=== PATIENT | female | born 1980 | race Caucasian/White ===

== ENCOUNTER 2016-09-06 15:15 | Emergency (ER) | payer MEDICAID ==
[~2016-09-06] VITALS: Ht 167.6 cm; Wt 57.0 kg
[2016-09-06 15:16] VITALS: BP 140/85; PULSE 112; RESP 15; TEMP 97.9; O2SAT 98
[2016-09-06] MEDS ORDERED: META1TAB19 PO (15:44)
[2016-09-06] MEDS ORDERED: HYDR-2376 PO (15:44)
[2016-09-06] MEDS ORDERED: ETOD400T PO (15:44)
[2016-09-06] MEDS ORDERED: ALPR1TAB3 PO (15:44)
[2016-09-06] MEDS ORDERED: KEPP750T PO ×2 (15:44→17:35)
[2016-09-06] MEDS ORDERED: levETIRAcetam 1000 MG INJ 100 ML IV ONE (16:00)
[2016-09-06] MEDS ORDERED: ALPRAZolam 1 MG TAB PO ONE (16:00)
--- NOTE | 2016-09-06 16:25 | PD ---
HPI Chief Complaint: Seizure Time Seen by Provider: 15:32 Travel History International Travel<30 days: No Contact w/Intl Traveler<30days: No Traveled to known affect area: No History of Present Illness HPI 35-year-old female came to the emergency room with history of seizure this morning. Patient has history of seizures and is supposed to be on Keppra and alprazolam. However she just recently moved and cannot get these prescriptions refilled. Her last dose of Xanax was 5 days ago and her last dose of Keppra was 2-3 days ago. Patient usually gets seizures once every 1-2 weeks. She is here to get her prescription refilled today. She is trying to get a primary care for herself who can continue with these prescriptions. Currently she is awake, alert, answering questions appropriately. She has tachycardia. PFSH Past Medical History Narrative Medical List of her past medical, social and family history was reviewed from the nursing note. Anxiety: Yes Diminished Hearing: No Musculoskeletal: Yes (CHRONIC BACK PAIN) Seizures: Yes (STARTED IN 2014) Tetanus Vaccination: Unknown ?: Not LMP: 09/03/16 : 3 Para: 3 Miscarriage: 0 : 0 Tubal Ligation: Yes Past Surgical History Section: Yes (X1) Social History Alcohol Use: No Tobacco Use: No Substance Use: No Allergies-Medications (Allergen,Severity, Reaction): Coded Allergies: Trazodone (Verified Allergy, Severe, Seizures, 09/06/16) Comments List of allergies reviewed from the nursing note. Reported Meds & Prescriptions Reported Meds & Active Scripts Active Keppra (Levetiracetam) 750 Mg Tab 750 Mg PO BID Xanax (Alprazolam) 0.5 Mg Tab 0.5 Mg PO Q6H PRN Reported Metaxalone 800 Mg Tab 800 Mg PO TID Hydrocodone-Acetaminophen 7.5-300 Mg Tab 1 Tab PO Q4H PRN Etodolac 400 Mg Tab 400 Mg PO BID Take with food. Alprazolam 1 Mg Tab 1 Mg PO Q6H PRN Keppra (Levetiracetam) 750 Mg Tab 750 Mg PO BID Narrative Medication List of her home medications reviewed from the nursing note. Review of Systems Except as stated in HPI: all other systems reviewed are Neg Physical Exam Narrative GENERAL: Awake, alert, anxious, no obvious distress SKIN: Warm and dry. HEAD: Atraumatic. Normocephalic. EYES: Pupils equal and round. No scleral icterus. No injection or drainage. ENT: No nasal bleeding or discharge. Mucous membranes pink and moist. NECK: Trachea midline. No JVD. CARDIOVASCULAR: Regular rate and rhythm. No murmur appreciated. RESPIRATORY: No accessory muscle use. Clear to auscultation. Breath sounds equal bilaterally. GASTROINTESTINAL: Abdomen soft, non-tender, nondistended. Hepatic and splenic margins not palpable. MUSCULOSKELETAL: No obvious deformities. No clubbing. No cyanosis. No edema. NEUROLOGICAL: Awake and alert. No obvious cranial nerve deficits. Motor grossly within normal limits. Normal speech. PSYCHIATRIC: Appropriate mood and affect; insight and judgment normal. Data Data Last Documented VS Vital Signs Date Time Temp Pulse Resp B/P Pulse Ox O2 Delivery O2 Flow Rate FiO2 09/06/16 18:16 74 20 135/82 98 Room Air 09/06/16 15:16 97.9 Orders Complete Blood Count With Diff (09/06/16 15:43) Basic Metabolic Panel (Bmp) (09/06/16 15:43) Magnesium (Mg) (09/06/16 15:43) Levetiracetam 1000 Mg Inj (Keppra 1000 M (09/06/16 16:00) Alprazolam (Xanax) (09/06/16 16:00) Mandatory Outpatient Referral (09/06/16 17:36) Labs Laboratory Tests Test 09/06/16 16:00 White Blood Count 10.7 TH/MM3 Red Blood Count 4.59 MIL/MM3 Hemoglobin 14.1 GM/DL Hematocrit 40.7 % Mean Corpuscular Volume 88.7 FL Mean Corpuscular Hemoglobin 30.7 PG Mean Corpuscular Hemoglobin 34.6 % Concent Red Cell Distribution Width 13.1 % Platelet Count 206 TH/MM3 Mean Platelet Volume 8.8 FL Neutrophils (%) (Auto) 70.5 % Lymphocytes (%) (Auto) 25.1 % Monocytes (%) (Auto) 2.5 % Eosinophils (%) (Auto) 1.4 % Basophils (%) (Auto) 0.5 % Neutrophils # (Auto) 7.5 TH/MM3 Lymphocytes # (Auto) 2.7 TH/MM3 Monocytes # (Auto) 0.3 TH/MM3 Eosinophils # (Auto) 0.1 TH/MM3 Basophils # (Auto) 0.1 TH/MM3 CBC Comment DIFF FINAL Differential Comment Sodium Level 139 MEQ/L Potassium Level 3.7 MEQ/L Chloride Level 106 MEQ/L Carbon Dioxide Level 27.5 MEQ/L Anion Gap 6 MEQ/L Blood Urea Nitrogen 10 MG/DL Creatinine 0.72 MG/DL Estimat Glomerular Filtration 92 ML/MIN Rate Random Glucose 89 MG/DL Calcium Level 8.9 MG/DL Magnesium Level 2.2 MG/DL MDM Medical Decision Making Medical Screen Exam Complete: Yes Emergency Medical Condition: Yes Medical Record Reviewed: Yes Differential Diagnosis Withdrawal seizures, prescription refill Narrative Course 4:25 PM I ordered IV 1 g of Keppra and patient is getting by mouth 1 mg of Xanax. Awaiting for the blood test results. Procedures EKG Prior to Arrival: No Diagnosis Primary Impression: Drug withdrawal seizure Qualified Code: F19.230 - Drug withdrawal seizure, uncomplicated Additional Impressions: Seizure disorder Prescription refill Referrals: Ryan Talamantes PhD 2 days Additional Instructions: Please follow-up with the neurologist was name and number been provided to you. Try to find a primary care for prescription refills. He should not drive until you have been cleared by a neurologist. Med/Other Pt SpecificInfo: Prescription(s) given Scripts Levetiracetam (Keppra)750 Mg Air695 Mg PO BID #10 TAB Ref 0 Prov:Kareen Hines MD 09/06/16 Alprazolam (Xanax)0.5 Mg Tab0.5 Mg PO Q6H PRN (ANXIETY) #10 TAB Ref 0 Prov:Kareen Hines MD 09/06/16 Disposition: 01 DISCHARGE HOME Condition: Stable Kareen Hines MD Sep 06, 2016 16:25
[2016-09-06 16:41] LABS: AUTOMATED NEUTROPHIL # 7.5 TH/MM3 (1.8-7.7); BASOPHIL # 0.1 TH/MM3 (0-0.2); BASOPHIL % 0.5 % (0.0-2.0); EOSINOPHIL # 0.1 TH/MM3 (0-0.4); EOSINOPHIL % 1.4 % (0.0-4.0); HEMATOCRIT 40.7 % (35.0-46.0); HEMO FLAGS DIFF FINAL; LYMPH % 25.1 % (9.0-44.0); LYMPHOCYTE # 2.7 TH/MM3 (1.0-4.8); MEAN CELL VOLUME 88.7 FL (80.0-100.0); MEAN CORPUSCULAR HEMOGLOBIN 30.7 PG (27.0-34.0); MEAN CORPUSCULAR HGB CONC 34.6 % (32.0-36.0); MONO % 2.5 % (0.0-8.0); NEUT % 70.5 % (16.0-70.0); PLATELET COUNT 206 TH/MM3 (150-450); RED BLOOD COUNT 4.59 MIL/MM3 (4.00-5.30); RED CELL DISTRIBUTION WIDTH 13.1 % (11.6-17.2); WHITE BLOOD COUNT 10.7 TH/MM3 (4.0-11.0)
[2016-09-06 17:10] LABS: BICARBONATE 27.5 MEQ/L (21.0-32.0); MAGNESIUM 2.2 MG/DL (1.5-2.5); POTASSIUM 3.7 MEQ/L (3.5-5.1)
[2016-09-06] MEDS ORDERED: ALPR.5 PO (17:35)
[2016-09-06 18:16] VITALS: BP 135/82; PULSE 74; RESP 20; O2SAT 98
== END 2016-09-06 19:15 | disposition home or self-care (01) ==
LOC: NEPE 15:15
DX: F19.230 Other psychoactive substance dependence with withdrawal, uncomplicated (principal); R00.0 Tachycardia, unspecified; G40.909 Epilepsy, unspecified, not intractable, without status epilepticus; Z76.0 Encounter for issue of repeat prescription
CPT/HCPCS: 80048; 83735; 85025; 96365; 99284; J1953

== ENCOUNTER 2017-08-27 10:43 | Emergency (ER) | payer MEDICAID ==
[~2017-08-27] VITALS: Ht 167.6 cm; Wt 56.4 kg
[~2017-08-27 10:43] MED LIST: ALPR.5 PO; ALPR1TAB3 PO; ETOD400T PO; HYDR-2376 PO; KEPP750T PO; META1TAB19 PO
[2017-08-27 10:46] VITALS: BP 141/74; PULSE 97; RESP 14; TEMP 98.4; O2SAT 98
[2017-08-27] MEDS ORDERED: SODIUM CHLOR 0.9% 1000 ML INJ 1,000 ML IV ONE (11:22)
[2017-08-27] MEDS ORDERED: ONDANSETRON HCL 4 MG/2 ML VIAL IV PUSH ONE (11:30)
[2017-08-27] MEDS ORDERED: SODIUM CHLORIDE 0.9% FLUSH 10 ML FLUSH IVF PRN (11:30)
[2017-08-27] MEDS ORDERED: MORPHINE SULFATE 2 MG/ML INJ IV PUSH ONE (11:30)
--- NOTE | 2017-08-27 11:37 | PD ---
HPI Chief Complaint: Seizure Time Seen by Provider: 11:16 Travel History International Travel<30 days: No Contact w/Intl Traveler<30days: No Traveled to known affect area: No History of Present Illness HPI Patient comes to the emergency department complaining of seizure that occurred last night while she was asleep in bed. Patient reports she takes Keppra 750 mg twice daily for her seizures and is compliant with this. Patient states she still has approximately 3-4 seizures per month. Patient states that she typically gets her medication from whatever hospital she goes to as she does not have a neurologist or primary care doctor currently. Patient states history has not seen a neurologist in a long time. Patient complaining of pain in her right leg from previous skin graft. Patient states that she typically has pain there but is worse since the seizure last night. Patient has pain as a stabbing burning pain without radiation. Patient denies any known trauma. Denies anything making it better or worse. PFSH Past Medical History Anxiety: Yes Diminished Hearing: No Musculoskeletal: Yes (CHRONIC BACK PAIN) Seizures: Yes (STARTED IN 2014) Influenza Vaccination: No ?: Not LMP: LAST MONTH : 3 Para: 3 Miscarriage: 0 : 0 Tubal Ligation: Yes Past Surgical History Section: Yes (X1) Other Surgery: Yes (SKIN GRAFT) Social History Alcohol Use: No Tobacco Use: Yes Substance Use: Yes (OCC MARIJUANA) Allergies-Medications (Allergen,Severity, Reaction): Coded Allergies: trazodone (Unverified Allergy, Severe, Seizures, 08/27/17) tramadol (Verified Allergy, Unknown, 08/27/17) Reported Meds & Prescriptions Reported Meds & Active Scripts Active Keppra (Levetiracetam) 750 Mg Tab 750 Mg PO BID 30 Days Xanax (Alprazolam) 0.5 Mg Tab 0.5 Mg PO Q6H PRN Reported Metaxalone 800 Mg Tab 800 Mg PO TID Hydrocodone-Acetaminophen 7.5-300 Mg Tab 1 Tab PO Q4H PRN Etodolac 400 Mg Tab 400 Mg PO BID Take with food. Alprazolam 1 Mg Tab 1 Mg PO Q6H PRN Review of Systems Except as stated in HPI: all other systems reviewed are Neg Physical Exam Narrative GENERAL: Well-developed, well nourished, in no acute distress, and non-ill appearing. SKIN: Focused skin assessment warm and dry. Well-healed skin graft noted over right lateral thigh. HEAD: Atraumatic. Normocephalic. EYES: Pupils equal and round. EOMI. No scleral icterus. No injection or drainage. ENT: No nasal bleeding or discharge. Mucous membranes pink and moist. NECK: Trachea midline. Supple. No nuclear rigidity. CARDIOVASCULAR: Regular rate and rhythm. No murmur appreciated. RESPIRATORY: No accessory muscle use. No respiratory distress. Clear to auscultation. Breath sounds equal bilaterally. MUSCULOSKELETAL: No obvious deformities. No clubbing. No cyanosis. No edema. Full range of motion. NEUROLOGICAL: Awake and alert. No obvious cranial nerve deficits. Motor grossly within normal limits. Normal speech. PSYCHIATRIC: Appropriate mood and affect; insight and judgment normal. Data Data Last Documented VS Vital Signs Date Time Temp Pulse Resp B/P (MAP) Pulse Ox O2 Delivery O2 Flow Rate FiO2 08/27/17 15:32 75 17 103/54 (70) 98 08/27/17 13:49 Room Air 08/27/17 10:46 98.4 Orders Orders Complete Blood Count With Diff (08/27/17 11:22) Basic Metabolic Panel (Bmp) (08/27/17 11:22) Alcohol (Ethanol) (08/27/17 11:22) Drug Screen, Random Urine (08/27/17 11:22) Blood Glucose (08/27/17 11:22) Ecg Monitoring (08/27/17 11:22) Iv Access Insert/Monitor (08/27/17 11:22) Oximetry (08/27/17 11:22) Sodium Chlor 0.9% 1000 Ml Inj (Ns 1000 M (08/27/17 11:22) Sodium Chloride 0.9% Flush (Ns Flush) (08/27/17 11:30) Urinalysis - C+S If Indicated (08/27/17 11:22) Ed Urine Pregnancytest Poc (08/27/17 11:22) Ondansetron Inj (Zofran Inj) (08/27/17 11:30) Morphine Inj (Morphine Inj) (08/27/17 11:30) Calcium Carbonate (Oscal) (08/27/17 14:30) Ed Discharge Order (08/27/17 14:23) Labs Laboratory Tests Test 08/27/17 11:55 08/27/17 13:40 White Blood Count 9.2 TH/MM3 Red Blood Count 4.73 MIL/MM3 Hemoglobin 14.4 GM/DL Hematocrit 41.6 % Mean Corpuscular Volume 88.0 FL Mean Corpuscular Hemoglobin 30.5 PG Mean Corpuscular Hemoglobin Concent 34.7 % Red Cell Distribution Width 14.4 % Platelet Count 179 TH/MM3 Mean Platelet Volume 9.0 FL Neutrophils (%) (Auto) 66.0 % Lymphocytes (%) (Auto) 28.5 % Monocytes (%) (Auto) 3.4 % Eosinophils (%) (Auto) 1.5 % Basophils (%) (Auto) 0.6 % Neutrophils # (Auto) 6.1 TH/MM3 Lymphocytes # (Auto) 2.6 TH/MM3 Monocytes # (Auto) 0.3 TH/MM3 Eosinophils # (Auto) 0.1 TH/MM3 Basophils # (Auto) 0.1 TH/MM3 CBC Comment DIFF FINAL Differential Comment Urine Color YELLOW Urine Turbidity CLEAR Urine pH 6.0 Urine Specific [place] 1.014 Urine Protein NEG mg/dL Urine Glucose (UA) NEG mg/dL Urine Ketones TRACE mg/dL Urine Occult Blood NEG Urine Nitrite NEG Urine Bilirubin NEG Urine Urobilinogen LESS THAN 2.0 MG/DL Urine Leukocyte Esterase NEG Urine WBC LESS THAN 1 /hpf Urine Squamous Epithelial Cells 3 /hpf Urine Bacteria RARE /hpf Urine Mucus FEW /lpf Microscopic Urinalysis Comment CULT NOT INDICATED Urine Opiates Screen NEG Urine Barbiturates Screen NEG Urine Amphetamines Screen NEG Urine Benzodiazepines Screen NEG Urine Cocaine Screen NEG Urine Cannabinoids Screen POS Blood Urea Nitrogen 6 MG/DL Creatinine 0.68 MG/DL Random Glucose 80 MG/DL Calcium Level 8.1 MG/DL Sodium Level 141 MEQ/L Potassium Level 4.6 MEQ/L Chloride Level 111 MEQ/L Carbon Dioxide Level 25.6 MEQ/L Anion Gap 4 MEQ/L Estimat Glomerular Filtration Rate 98 ML/MIN Ethyl Alcohol Level LESS THAN 3 MG/DL [facility] Medical Decision Making Medical Screen Exam Complete: Yes Emergency Medical Condition: Yes Differential Diagnosis Metabolic disturbance, UTI, withdrawal seizure, seizure disorder, medication refill, dehydration, medical noncompliance Narrative Course The patient presented with seizure. The patient has a known seizure disorder. The patient looks great and has returned to baseline. The patient admits to taking seizure medications as prescribed, but not following up outside the hospital. There is no evidence clinically to suggest meningitis, infection or metabolic etiology. The patient appears well hydrated and nontoxic. Clinical suspicion was discussed with patient. Patient was instructed that they must take seizure medication as prescribed and not miss or skip doses and follow-up with her neurologist for adjustment of medications or changes of medication. Patient was instructed she could return as needed or if recurred prior to follow up with neurology. Patient agreed with plan and instructions. The patient was also informed that they may not drive or operated heavy machinery due to the fact that they may have a seizure and cause injury or to themselves or others. They may not drive or operate heavy machinery until cleared by a neurologist. Patient in no obvious distress upon re-evaluation. All pertinent laboratory result(s) discussed with patient. Patient was asked if they wanted to speak to my attending, which the patient did not wish to do at this time. Discussed patient with Dr. Kang prior to discharge, who is in agreement with plan of care and disposition. Any questions/concerns in reference to patient diagnosis/ condition discussed and clarified prior to patient's discharge. Reinforced sheer importance of close follow up with patient's primary physician or primary care clinic and/or neurologist. Instructed patient to return to ED immediately, if symptoms return/worsen. Patient showed understanding of above instructions. Further instructions and recommendations were detailed in discharge paperwork. Patient ambulated without difficulty out of ED at discharge. Diagnosis Primary Impression: Seizure disorder Additional Impressions: Prescription refill Hypocalcemia Referrals: Ryan Talamantes MD PhD [facility] Patient Instructions: Epilepsy (DC), General Instructions, Hypocalcemia (ED), Medication Refill, ED Additional Instructions: Follow-up with your primary care physician and neurologist as soon as possible for reevaluation and adjustment of medications. Take all medication as prescribed. Return to the emergency department if symptoms get worse. Med/Other Pt SpecificInfo: Prescription(s) given Scripts Levetiracetam (Keppra) 750 Mg Tab 750 MG PO BID for Control Seizures for 30 Days, #60 TAB 0 Refills Prov: Chang Kang MD 08/27/17 Disposition: 01 DISCHARGE HOME Condition: Stable Tawanda Cazares Aug 27, 2017 11:37
[2017-08-27 11:58] VITALS: BP 151/77; PULSE 82; RESP 15; O2SAT 99
[2017-08-27 12:39] LABS: AUTOMATED NEUTROPHIL # 6.1 TH/MM3 (1.8-7.7); BASOPHIL # 0.1 TH/MM3 (0-0.2); BASOPHIL % 0.6 % (0.0-2.0); EOSINOPHIL # 0.1 TH/MM3 (0-0.4); EOSINOPHIL % 1.5 % (0.0-4.0); HEMATOCRIT 41.6 % (35.0-46.0); HEMOGLOBIN 14.4 GM/DL (11.6-15.3); LYMPH % 28.5 % (9.0-44.0); LYMPHOCYTE # 2.6 TH/MM3 (1.0-4.8); MEAN CORPUSCULAR HEMOGLOBIN 30.5 PG (27.0-34.0); MEAN CORPUSCULAR HGB CONC 34.7 % (32.0-36.0); MONO % 3.4 % (0.0-8.0); MONOCYTE # 0.3 TH/MM3 (0-0.9); PLATELET COUNT 179 TH/MM3 (150-450); RED BLOOD COUNT 4.73 MIL/MM3 (4.00-5.30); RED CELL DISTRIBUTION WIDTH 14.4 % (11.6-17.2); WHITE BLOOD COUNT 9.2 TH/MM3 (4.0-11.0)
[2017-08-27 13:04] LABS: BACTERIA, URINE RARE /hpf; BILIRUBIN, URINE NEG (NEG); BLOOD, URINE NEG (NEG); GLUCOSE,URINE NEG (NEG); KETONE, URINE TRACE mg/dL (NEG); MUCUS URINE FEW /lpf (OCC); NITRITE,URINE NEG (NEG); SQUAMOUS EPITHELIAL CELL URINE 3 /hpf (0-5); URINE COLOR YELLOW (YELLW/STRAW); URINE LEUKOCYTE ESTERASE NEG (NEG)
[2017-08-27 13:49] VITALS: BP 106/58; PULSE 71; RESP 16; O2SAT 98
[2017-08-27 14:14] LABS: BICARBONATE 25.6 MEQ/L (21.0-32.0); BLOOD UREA NITROGEN 6 MG/DL (7-18); CALCIUM 8.1 MG/DL (8.5-10.1); CHLORIDE 111 MEQ/L (98-107); CREATININE 0.68 MG/DL (0.50-1.00); GLOMERULAR FILTRATION RATE 98 ML/MIN (>89); GLUCOSE,RANDOM 80 MG/DL (74-106); SODIUM (NA) 141 MEQ/L (136-145)
[2017-08-27] MEDS ORDERED: KEPP750T PO (14:28)
[2017-08-27] MEDS ORDERED: CALCIUM CARBONATE 1.25 GM (CA 500 MG) TAB PO ONE (14:30)
[2017-08-27 15:32] VITALS: BP 103/54
== END 2017-08-27 15:45 | disposition home or self-care (01) ==
LOC: NEPC 10:43
DX: G40.909 Epilepsy, unspecified, not intractable, without status epilepticus (principal); E83.51 Hypocalcemia; Z72.0 Tobacco use
CPT/HCPCS: 80048; 80307; 81001; 84703; 85025; 96361; 96374; 96375; 99284; J2270; J2405; J7030

== ENCOUNTER 2017-09-30 11:58 | Emergency (ER) | payer MEDICAID ==
[~2017-09-30] VITALS: Ht 167.6 cm; Wt 56.0 kg
[2017-09-30 12:19] VITALS: BP 130/69; PULSE 72; RESP 16; TEMP 98.6; O2SAT 98
[2017-09-30] MEDS ORDERED: CLIN300C5 PO (12:37)
--- NOTE | 2017-09-30 12:42 | PD ---
HPI Chief Complaint: Oral / Dental Pain or Problem Time Seen by Provider: 12:22 Travel History International Travel<30 days: No Contact w/Intl Traveler<30days: No Traveled to known affect area: No History of Present Illness HPI 37-year-old female presents to the emergency room for evaluation of right upper dental pain for the past 2 days. States she woke up this morning and the right side of her face was swollen. Pain is constant, worse when she opens her mouth or bites down. She has not taken anything [id number] for her symptoms because she does not like to take anything besides what is prescribed to her. She applied a cool towel to her face last night. No objective fevers. Only history of seizures. PFSH Past Medical History Anxiety: Yes Diminished Hearing: No Musculoskeletal: Yes (CHRONIC BACK PAIN) Seizures: Yes (STARTED IN 2014) : 3 Para: 3 Miscarriage: 0 : 0 Tubal Ligation: Yes Past Surgical History Section: Yes (X1) Other Surgery: Yes (SKIN GRAFT) Social History Alcohol Use: No Tobacco Use: Yes Substance Use: Yes (OCC MARIJUANA) Allergies-Medications (Allergen,Severity, Reaction): Coded Allergies: trazodone (Unverified Allergy, Severe, Seizures, 08/27/17) tramadol (Verified Allergy, Unknown, 08/27/17) Reported Meds & Prescriptions Reported Meds & Active Scripts Active Keppra (Levetiracetam) 750 Mg Tab 750 Mg PO BID 30 Days Xanax (Alprazolam) 0.5 Mg Tab 0.5 Mg PO Q6H PRN Reported Metaxalone 800 Mg Tab 800 Mg PO TID Hydrocodone-Acetaminophen 7.5-300 Mg Tab 1 Tab PO Q4H PRN Etodolac 400 Mg Tab 400 Mg PO BID Take with food. Alprazolam 1 Mg Tab 1 Mg PO Q6H PRN Review of Systems Except as stated in HPI: all other systems reviewed are Neg Physical Exam Narrative GENERAL: Well-nourished, well-developed female no acute distress. Afebrile. Ambulatory. SKIN: Focused skin assessment warm/dry. HEAD: Normocephalic. Right side of the face is mildly edematous. No induration. EYES: No scleral icterus. No injection or drainage. DENTAL: No loose or chipped teeth. No malocclusion. Significant decay throughout. There is a small developing abscess above tooth #4. No significant edema. No drainage. NECK: Supple, trachea midline. No JVD or lymphadenopathy. CARDIOVASCULAR: Regular rate and rhythm without murmurs, gallops, or rubs. RESPIRATORY: Breath sounds equal bilaterally. No accessory muscle use. Data Data Last Documented VS Vital Signs Date Time Temp Pulse Resp B/P (MAP) Pulse Ox O2 Delivery O2 Flow Rate FiO2 09/30/17 12:19 98.6 72 16 130/69 (89) 98 Orders Orders Ketorolac Inj (Toradol Inj) (09/30/17 12:45) Clindamycin Inj (Cleocin Inj) (09/30/17 12:45) [facility] Medical Decision Making Medical Screen Exam Complete: Yes Emergency Medical Condition: Yes Medical Record Reviewed: Yes Differential Diagnosis Dental abscess, dentalgia, dental decay Narrative Course 37-year-old female presents to the emergency room for evaluation of right-sided dental pain that started yesterday. Associated facial swelling started today. She denies any objective fevers. Vital signs stable. Physical exam is reassuring. There is significant edema of the right face without induration or evidence of Leonard's. There is obvious developing abscess over tooth #4. Not amendable to incision and drainage at this time. Patient was given 600 mg IM clindamycin and 60 mg's Toradol. Discharged with prescription for clindamycin. Told to follow-up with a dentist or return for worsening symptoms. She understands and agrees to plan. Diagnosis Primary Impression: Dental abscess Referrals: Dentist Additional Instructions: Rest and drink plenty of fluids. Clindamycin as directed, until gone. Follow-up with a dentist. Return to the emergency room for worsening symptoms. Med/Other Pt SpecificInfo: Prescription(s) given Scripts Clindamycin (Clindamycin) 300 Mg Cap 300 MG PO Q6H for Infection for 7 Days, #28 CAP 0 Refills Prov: Ashley Forte MD 09/30/17 Disposition: 01 DISCHARGE HOME Condition: Stable Sisi Wilkins Sep 30, 2017 12:42
[2017-09-30] MEDS ORDERED: CLINDAMYCIN PHOS 600 MG/4 ML VIAL IM ONE (12:45)
[2017-09-30] MEDS ORDERED: KETOROLAC TROMETHAMINE 60 MG/2 ML (IM) VIAL IM ONE (12:45)
== END 2017-09-30 13:05 | disposition home or self-care (01) ==
LOC: NEPK 11:58
DX: K04.7 Periapical abscess without sinus (principal); F41.9 Anxiety disorder, unspecified; Z72.0 Tobacco use; Z88.8 Allergy status to other drugs, medicaments and biological substances; Z79.899 Other long term (current) drug therapy
CPT/HCPCS: 96372; 99283; J1885